=== PATIENT | female | born 1970 | race Caucasian/White ===

== ENCOUNTER → 2016-06-22 | Outpatient (CLI) | payer OTHER ==
[~2016-06-22] VITALS: Ht 161.3 cm; Wt 57.0 kg
[~2016-06-22] MED LIST: BENEPOW8 PO; CHLORHEXIDINE GLUCONATE 2 % 1 PACK (2 CLOTHS) TOPICAL PRN; INSULIN HUMAN REGULAR 1,000 UNITS/10 ML VIAL SQ PRN; LACTATED RINGER'S 1000 ML IV PRN; METOPROLOL TARTRATE 25 MG TAB PO PRN; MULT-120 PO; ORTHTAB4 PO; POVIDONE IODINE 5% (ANTISEPSIS KIT) 4 APPLICATIONS EACH NARE PRN; PROBCAP11 PO; PROPOFOL 200 MG/20 ML AMP IV ONE; SODIUM CHLORID 0.9% 500 ML IV PRN
[2016-06-22 12:50] VITALS: BP 110/70; PULSE 80; RESP 20; TEMP 98.5; O2SAT 98
[2016-06-22 15:14] VITALS: TEMP 97.7
--- NOTE | 2016-06-22 15:17 | GIPROC ---
[facility] [address] [facility]. [facility] [place], [id number] EGD PROCEDURE REPORT EXAM DATE: 06/22/2016 PATIENT NAME: Etta Alvarez MR#: [id number] BIRTHDATE: 1970 STATUS: outpatient ATTENDING: Celso Tabor MD VISIT ID: [id number] MACHINIST SET UP: Avery Veras and Yunior Ruggiero ORDER #: [id number] INDICATIONS: The patient is a 46 yr old female here for an EGD due to hematochezia and history of GERD. PROCEDURE PERFORMED: EGD w/ biopsy MEDICATIONS: None and Per Anesthesia. ASA CLASS: Class II PHYSICAL EXAM: normal CONSENT: The patient understands the risks and benefits of the procedure and understands that these risks include, but are not limited to: sedation, allergic reaction, infection, perforation and/or bleeding. Alternative means of evaluation and treatment include, among others: physical exam, x-rays, and/or surgical intervention. The patient elects to proceed with this endoscopic procedure. DESCRIPTION OF PROCEDURE: for proper function. Hand hygiene and appropriate measures for infection prevention was taken. After the risks, benefits and alternatives of the procedure were thoroughly explained, Informed consent was verified, confirmed and timeout was successfully executed by the treatment team. The [employer] EG-[id number] endoscope was introduced through the mouth and advanced to the second portion of the duodenum. The instrument was slowly withdrawn as the mucosa was fully examined. ESOPHAGUS: There was LA Class B esophagitis noted. Multiple biopsies were performed. The esophagus was otherwise normal. Minor ampulla. STOMACH: There was mild gastritis in the gastric antrum. Multiple biopsies were performed. DUODENUM: The duodenal mucosa appeared normal in the duodenal bulb and 2nd part duodenum. Retroflexed views revealed a hiatal hernia The gastroscope was then slowly withdrawn and removed. COMPLICATIONS: There were no complications. IMPRESSIONS: 1. There was LA Class B esophagitis noted; multiple biopsies were performed 2. The esophagus was otherwise normal 3. Minor ampulla 4. There was mild gastritis in the gastric antrum; multiple biopsies were performed 5. Normal duodenal mucosa in the duodenal bulb and 2nd part duodenum 6. Retroflexed views revealed a hiatal hernia RECOMMENDATIONS: 1. Await biopsy results. Biopsy results will not be ready for 7-10 days. If you don't hear from us in two weeks, call our office for biopsy results. 2. Anti-reflux regimen 3. Start PPI 4. Avoid NSAIDS PATIENT CONDITION: stable DISPOSITION: Home REPEAT EXAM: Celso Tabor MD eSigned: Celso Tabor MD 06/22/2016 3:16 PM cc: PATIENT NAME: Etta Alvarez MR#: [id number]
[2016-06-22 15:28] VITALS: BP 110/76; PULSE 84; RESP 16; O2SAT 99
== END ==
LOC: HEND 11:34
PROVIDERS: ATTEND Internal Medicine Gastroenterology
DX: K20.9 Esophagitis, unspecified (principal); K29.70 Gastritis, unspecified, without bleeding; K44.9 Diaphragmatic hernia without obstruction or gangrene; K62.5 Hemorrhage of anus and rectum; D12.2 Benign neoplasm of ascending colon; K57.30 Diverticulosis of large intestine without perforation or abscess without bleeding; K64.8 Other hemorrhoids
CPT/HCPCS: 43239; 45385; 88305; J7120